=== PATIENT | female | born 1955 | race Caucasian/White ===

== ENCOUNTER → 2017-03-31 | Outpatient (CLI) | payer OTHER ==
[2015-10-05 08:05] VITALS: BP 105/70
--- NOTE | 2017-04-04 15:01 | RAD ---
DATE: 03/31/2017 EXAM: MAMMO JORDON SCREENING BILATERAL HISTORY: Screening Mammogram COMPARISON: None available This study was interpreted with the benefit of Computerized Aided Detection (CAD). The breast parenchyma shows scattered fibroglandular densities. Breast parenchyma level B. FINDINGS: Bilateral digital 2-D and 3-D tomosynthesis CC and MLO views. There are postsurgical changes from bilateral breast reduction. There is a 0.8 cm mass in the upper outer right breast 7 cm from the nipple. No suspicious mass, calcification or architectural distortion in the left breast. Impression: Upper outer right breast mass measuring 0.7 cm. Diagnostic right breast mammogram is recommended to include spot compression views and consideration for same-day ultrasound, if needed. BI-RADS CATEGORY: 0 INCOMPLETE: NEEDS ADDITIONAL IMAGING EVALUATION AND/OR PRIOR MAMMOGRAMS FOR COMPARISON. RECOMMENDED FOLLOW-UP: ADD ADDITIONAL IMAGING PQRS compliance statement: Patient information was entered into a reminder system with a target due date for the next mammogram. Mammography is a sensitive method for finding small breast cancers, but it does not detect them all and is not a substitute for careful clinical examination. A negative mammogram does not negate a clinically suspicious finding and should not result in delay in biopsying a clinically suspicious abnormality. "Our facility is accredited by the [employer] Mammography Program."
== END | disposition home or self-care (01) ==
LOC: MAMMO 09:50
PROVIDERS: ATTEND Physician Assistant
DX: Z12.31 Encounter for screening mammogram for malignant neoplasm of breast (principal); N63.11 Unspecified lump in the right breast, upper outer quadrant
CPT/HCPCS: 77063; 77067

== ENCOUNTER → 2017-04-14 | Outpatient (CLI) | payer OTHER ==
[2015-10-05 08:05] VITALS: BP 105/70
[~2017-04-14] MED LIST: SUMA100T4 PO
--- NOTE | 2017-04-14 11:38 | RAD ---
DATE: 04/14/2017 EXAM: DIGITAL DIAGNOSTIC RT, BREAST RIGHT HISTORY: Suspicious screening study COMPARISON: 03/31/2017 This study was interpreted with the benefit of Computerized Aided Detection (CAD). The breast parenchyma shows scattered fibroglandular densities. Breast parenchyma level B. FINDINGS: Additional views confirm the presence of an 8 mm smooth nodule at the 9:00 location in the right breast located 7-8 cm from the nipple. Right breast ultrasound, 04/14/2017: A targeted ultrasound exam of the right breast was performed at the 9:00 location. There is a smooth oval-shaped 7-8mm cyst at this level which corresponds in size and location to the mammographic abnormality. At the 10:00 location approximately 4 mm from the nipple there is a tiny 2-3 mm smooth hypoechoic nodule. This is also probably a cyst. IMPRESSION: Left breast cysts, one of which corresponds to the mammographic abnormality. BI-RADS CATEGORY: 2 BENIGN FINDING(S) RECOMMENDED FOLLOW-UP: 12M 12 MONTH FOLLOW-UP PQRS compliance statement: Patient information was entered into a reminder system with a target due date for the next mammogram. Mammography is a sensitive method for finding small breast cancers, but it does not detect them all and is not a substitute for careful clinical examination. A negative mammogram does not negate a clinically suspicious finding and should not result in delay in biopsying a clinically suspicious abnormality. "Our facility is accredited by the [employer] Mammography Program."
== END | disposition home or self-care (01) ==
LOC: MAMMO 09:51
PROVIDERS: ATTEND Physician Assistant
DX: N60.02 Solitary cyst of left breast (principal)
CPT/HCPCS: 76641; 77065

== ENCOUNTER 2017-04-21 08:19 | Emergency (ER) | payer OTHER ==
[~2017-04-21] VITALS: Ht 157.5 cm; Wt 94.8 kg
[2017-04-21] MEDS ORDERED: IV NORMAL SALINE 1,000ML 1,000 ML IV SCH (08:46)
[2017-04-21 09:10] LABS: BASO # 0.1 x10^3/uL (0.0-0.2); BASO % 1 % (0-3); EOS # 0.1 x10^3/uL (0.0-0.7); EOS % 1 % (0-3); HEMATOCRIT 42.2 % (36.0-47.0); HEMOGLOBIN 14.4 g/dL (12.0-15.5); LYMPH # 1.4 x10^3/uL (1.0-4.8); LYMPH % 15 % (24-48); MEAN CORPUSCULAR HEMOGLOBIN 31 pg (25-35); MEAN CORPUSCULAR HGB CONC 34 g/dL (31-37); MEAN CORPUSCULAR VOLUME 90 fL (79-100); MONO # 0.8 x10^3/uL (0.0-1.1); MONO % 8 % (0-9); NEUT % 75 % (31-73); PLATELET COUNT 323 x10^3/uL (140-400); RED BLOOD COUNT 4.71 x10^6/uL (3.50-5.40); RED CELL DISTRIBUTION WIDTH 14.1 % (11.5-14.5); WHITE BLOOD COUNT 9.4 x10^3/uL (4.0-11.0)
[2017-04-21] MEDS ORDERED: SUMAtriptan. 6 MG/0.5 ML VIAL SQ ONE (09:15)
[2017-04-21] MEDS ORDERED: diphenhydrAMINE 50 MG/ML VIAL IVP ONE (09:15)
[2017-04-21] MEDS ORDERED: KETOROLAC 30 MG/ML VIAL. IV ONE (09:15)
[2017-04-21 09:17] LABS: ALBUMIN 3.9 g/dL (3.4-5.0); ALBUMIN/GLOBULIN RATIO 1.1 (1.0-1.7); CALCIUM 9.2 mg/dL (8.5-10.1); CREATININE 0.8 mg/dL (0.6-1.0); GFR 72.9; POTASSIUM 4.1 mmol/L (3.5-5.1); TOTAL BILIRUBIN 0.5 mg/dL (0.2-1.0); TOTAL PROTEIN 7.5 g/dL (6.4-8.2)
--- NOTE | 2017-04-21 09:18 | RAD ---
PQRS Compliance Statement: One or more of the following individualized dose reduction techniques were utilized for this examination: 1. Automated exposure control 2. Adjustment of the mA and/or kV according to patient size 3. Use of iterative reconstruction technique CT HEAD, MAXILLOFACIAL WITHOUT CONTRAST History: HEADACHE WITH DIZZINESS, HX OF SINUS INFECTION Comparison: None. Procedure: Axial images are obtained of the head from the skull base through the vertex without IV contrast. Helical CT imaging of the facial bones is performed without IV contrast. Findings: The ventricles and sulci are normal for the patient's age. There is minimal periventricular white matter hypoattenuation. Vague hypodensity is also seen in the claude. This is a nonspecific finding but is commonly due to chronic small vessel ischemic disease in a patient of this age. No mass-effect, midline shift, hemorrhage or obvious acute infarction is identified. Basilar cisterns are patent. Bone windows demonstrate no significant calvarial abnormality. No acute facial bone fracture. Bony nasal septum is mostly midline. The ostiomeatal complexes are patent. The paranasal sinuses are clear. Mastoid air cells are well aerated. IMPRESSION: 1. No acute intracranial abnormality. 2. Paranasal sinuses are clear. Electronically signed by: Jhonny Stark MD (04/21/2017 9:15 AM) [id number]
--- NOTE | 2017-04-21 09:21 | PHYS DOC ---
General Chief Complaint: HEADACHE Stated Complaint: HEADACHE X1 MONTH Time Seen by MD: 08:19 Source: patient Exam Limitations: no limitations (orthostatic with) Problems: History of Present Illness Initial Comments Patient is a 61-year-old female who comes in the ED complaining of headache. Patient states that she's had a headache since March 16, she has chronic headache history but states that this is significantly different. Headache is located frontal and behind her eyes, radiates posteriorly described as throbbing and severe worse with standing and activity and improved with lying flat. Patient gets dizzy when getting up and has had decreased urination. No fever or rash or neck stiffness, no photophobia no vomiting or diarrhea. She saw her doctor about this a few weeks ago diagnosed sinusitis and was placed on "an antibiotic" for 12 days which she states has not helped. No new or progressive symptoms the patient has become very frustrated and has come here at her PCPs request for further evaluation. Timing/Duration: constant Severity: severe Modifying Factors: worse with movement, improves with rest Associated Symptoms: headaches, other Allergies: Coded Allergies: Sulfa (Sulfonamide Antibiotics) (Verified Allergy, Intermediate, 04/21/17) acetaminophen (Verified Allergy, Intermediate, 04/21/17) Past Medical History Medical History: other (diabetes, hypertension, hyperlipidemia, cardiomyopathy , diabetic ulcer right foot) Surgical History: other (cholecystectomy, tonsillectomy, left foot, wrist, breast reduction, cyst removal) Social History Smoker: non-smoker Alcohol: none Drugs: none Review of Systems Constitutional: denies chills, denies diaphoresis, denies fever, malaise EENTM: denies eye pain, denies blurred vision, denies ear pain, denies nose pain, denies throat pain, denies mouth pain Respiratory: denies cough, denies shortness of breath, denies wheezing Cardiovascular: denies chest pain, denies palpitations, denies syncope Gastrointestinal: denies abdominal pain, denies diarrhea, denies nausea, denies vomiting Genitourinary: see HPI Musculoskeletal: denies back pain, denies joint swelling Psychiatric/Neurological: see HPI, headache, denies numbness, denies paresthesia, denies weakness Hematologic/Lymphatic: denies blood clots, denies easy bleeding, denies easy bruising Physical Exam General Appearance: no apparent distress Eyes: bilateral eye normal inspection, bilateral eye PERRL, bilateral eye EOMI Ear, Nose, Throat: hearing grossly normal, normal ENT inspection, normal pharynx (dry mucous membranes) Neck: non-tender, supple Respiratory: normal breath sounds, no respiratory distress Cardiovascular: normal peripheral pulses, regular rate, rhythm Gastrointestinal: non tender, soft Back: no CVA tenderness, no vertebral tenderness Extremities: normal range of motion, non-tender, no calf tenderness, other ( walking boot left foot) Neurologic/Psychiatric: obgyn specialist II-XII nml as tested, no motor/sensory deficits, alert, normal mood/affect, oriented x 3 Skin: pallor (poor turgor) Orders, Labs, Meds PATIENT: HILARY BURGOS ACCOUNT: [id number] : 1955 LOCATION: ER AGE: 61 SEX: F EXAM STATUS: REG ER ORD. PHYSICIAN: ASHWINI HINES DO REASON: UNDERWOOD/dizzy x 1 mo, tx for sinus infection PROCEDURE: CT HEAD AND MAXILLOFACIAL [facility] Compliance Statement: One or more of the following individualized dose reduction techniques were utilized for this examination: 1. Automated exposure control 2. Adjustment of the mA and/or kV according to patient size 3. Use of iterative reconstruction technique CT HEAD, MAXILLOFACIAL WITHOUT CONTRAST History: HEADACHE WITH DIZZINESS, HX OF SINUS INFECTION Comparison: None. Procedure: Axial images are obtained of the head from the skull base through the vertex without IV contrast. Helical CT imaging of the facial bones is performed without IV contrast. Findings: The ventricles and sulci are normal for the patient's age. There is minimal periventricular white matter hypoattenuation. Vague hypodensity is also seen in the claude. This is a nonspecific finding but is commonly due to chronic small vessel ischemic disease in a patient of this age. No mass-effect, midline shift, hemorrhage or obvious acute infarction is identified. Basilar cisterns are patent. Bone windows demonstrate no significant calvarial abnormality. No acute facial bone fracture. Bony nasal septum is mostly midline. The ostiomeatal complexes are patent. The paranasal sinuses are clear. Mastoid air cells are well aerated. IMPRESSION: 1. No acute intracranial abnormality. 2. Paranasal sinuses are clear. Electronically signed by: Jhonny Stark MD (04/21/2017 9:15 AM) [id number] DICTATED AND SIGNED BY: JHONNY STARK MD DATE: 04/21/17907 CC: YOLANDA WHITMORE; ASHWINI HINES DO ~ Pertinent labs: White blood cells 9.4, hemoglobin 14.4, BUN 29, creatinine 0.8, BUN/creatinine 36 UA: Greater than 1000 glucose, yeast 0955: Patient rechecked and after 1 L normal saline IV bolus headache symptoms improved from 10 to 3-4 and the patient's feeling much better. She is able to sit up comfortably. Talking with her further, her last hemoglobin A1c was over 9 , and within the past 2-3 weeks even while she's been having these headaches her diabetes medications have been adjusted and she has better glycemic control. It appears she's been hypovolemic and symptomatic with headache likely due to lack of tight glycemic control. She declines another liter of fluids, does request Imitrex to try at home. I discussed signs and symptoms to monitor as well as indications for urgent return to the department. I discussed oral hydration and need for electrolytes and tight glycemic control. Discussed over- the-counter prescription medications and the patient's questions were answered to her satisfaction. She expressed agreement and understanding of the treatment plan. Impressions: Headache Hypovolemia Vaginal candidiasis Departure Time of Disposition: 09:59 Disposition: 01 HOME, SELF-CARE Diagnosis: headache, hypovolemia, vaginal candidiasis Condition: IMPROVED Patient Instructions: Dehydration, Adult, [id number] Additional Instructions: Please review the patient education materials given by ED staff. Continue hydration, mixed in some diluted G2 as discussed. Continue current medications. Prescription: Sumatriptan Follow-up with Edmund Whitmore in 3-5 days for recheck. Return to ED with new or changing symptoms. ASHWINI HINES DO Apr 21, 2017 09:21
[2017-04-21 09:32] LABS: CLARITY,URINE HAZY; COLOR,URINE YELLOW
[2017-04-21 09:33] LABS: BACTERIA,URINE 0 /HPF (0-FEW); BILIRUBIN,URINE NEG (NEG); GLUCOSE,URINE >=1000 mg/dL (NEG); NITRITE,URINE NEG (NEG); RBC,URINE 0 /HPF (0-2); SQUAMOUS EPITHELIAL CELL,UR OCC /LPF; UROBILINOGEN,URINE 0.2 mg/dL (0.2 mg/dL); WBC,URINE 0 /HPF (0-4); YEAST,URINE PRESENT /HPF
[2017-04-21 09:54] VITALS: BP 117/74
[2017-04-21] MEDS ORDERED: FLUCONAZOLE 100 MG TABLET. PO ONE (10:00)
[2017-04-21] MEDS ORDERED: SUMA100T4 PO (10:01)
== END 2017-04-21 10:07 | disposition home or self-care (01) ==
LOC: ER 08:19
DX: R51 Headache (principal); E86.1 Hypovolemia; B37.3 Candidiasis of vulva and vagina; E11.621 Type 2 diabetes mellitus with foot ulcer; E78.5 Hyperlipidemia, unspecified; I10 Essential (primary) hypertension; I42.9 Cardiomyopathy, unspecified; Z88.2 Allergy status to sulfonamides; Z88.6 Allergy status to analgesic agent
CPT/HCPCS: 36415; 70450; 70486; 80053; 81001; 82550; 84484; 85025; 96361; 96372; 96374; 96375; 99285; J1200; J1885; J3030; J7030

== ENCOUNTER → 2017-09-21 | Outpatient (CLI) | payer OTHER ==
[2017-09-21 13:03] LABS: FREE T4 1.04 ng/dL (0.76-1.46); THYROID STIM HORMONE (TSH) 0.172 uIU/mL (0.358-3.740)
== END | disposition home or self-care (01) ==
LOC: LAB 07:31
PROVIDERS: ATTEND Otolaryngology
DX: R43.0 Anosmia (principal); I10 Essential (primary) hypertension; E11.621 Type 2 diabetes mellitus with foot ulcer; E78.5 Hyperlipidemia, unspecified
CPT/HCPCS: 84439; 84443

== ENCOUNTER → 2018-04-09 | Outpatient (CLI) | payer OTHER ==
--- NOTE | 2018-04-10 07:19 | RAD ---
DATE: 04/09/2018 EXAM: MAMMO JORDON SCREENING BILATERAL HISTORY: Screening Mammogram COMPARISON: Mammogram 03/31/2017 This study was interpreted with the benefit of Computerized Aided Detection (CAD). The breast parenchyma shows scattered fibroglandular densities. Breast parenchyma level B. FINDINGS: Bilateral digital 2-D and 3-D tomosynthesis CC and MLO views. Stable circumscribed mass in the lateral left breast, posterior depth. Stable circumscribed mass in the lateral right breast, previously demonstrated as a cyst. No suspicious mass, calcification or architectural distortion. No significant change from prior examination IMPRESSION: No mammographic evidence of malignancy. Recommend routine screening mammogram in 12 months. BI-RADS CATEGORY: 2 BENIGN FINDING(S) RECOMMENDED FOLLOW-UP: 12M 12 MONTH FOLLOW-UP PQRS compliance statement: Patient information was entered into a reminder system with a target due date for the next mammogram. Mammography is a sensitive method for finding small breast cancers, but it does not detect them all and is not a substitute for careful clinical examination. A negative mammogram does not negate a clinically suspicious finding and should not result in delay in biopsying a clinically suspicious abnormality. "Our facility is accredited by the [employer] Mammography Program."
== END | disposition home or self-care (01) ==
LOC: MAMMO 08:25
PROVIDERS: ATTEND Family Medicine
DX: Z12.31 Encounter for screening mammogram for malignant neoplasm of breast (principal)
CPT/HCPCS: 77063; 77067